=== PATIENT | female | born 1970 | race Two or more races ===

== ENCOUNTER 2024-05-02 06:07 | Day surgery (SDC) | payer OTHER ==
[2024-05-02] MEDS ORDERED: DIPHENHYDRAMINE HCL 50 MG/ML VIAL 1ML IV ONE (09:00)
[2024-05-02] MEDS ORDERED: fentaNYL CITRATE 50 MCG/ML AMPUL IV PUSH ONE (09:00)
[2024-05-02] MEDS ORDERED: MIDAZOLAM HCL 2 MG/2 ML VIAL IV ONE (09:00)
== END 2024-05-02 10:10 | disposition home or self-care (01) ==
LOC: AMB-ENDOS 06:07
PROVIDERS: ATTEND Internal Medicine
DX: K22.2 Esophageal obstruction (principal); K20.0 Eosinophilic esophagitis; R13.13 Dysphagia, pharyngeal phase; K31.7 Polyp of stomach and duodenum